=== PATIENT | male | born 1970 | race Caucasian/White ===

== ENCOUNTER → 2016-12-16 | Outpatient (CLI) | payer OTHER ==
--- NOTE | 2016-12-16 20:51 | XR ---
EXAMINATION TYPE: XR chest 2V DATE OF EXAM: 12/16/2016 COMPARISON: NONE HISTORY: Chest pain TECHNIQUE: Frontal and lateral views of the chest are obtained. FINDINGS: Heart and mediastinum are normal. Lungs are clear. Diaphragm is normal. Bony thorax is int act. IMPRESSION: Normal chest
== END | disposition home or self-care (01) ==
LOC: RADXRMAIN 16:53
PROVIDERS: ATTEND Family Medicine
DX: M94.0 Chondrocostal junction syndrome [Tietze] (principal)
CPT/HCPCS: 71020

== ENCOUNTER → 2017-02-04 | Outpatient (CLI) | payer OTHER ==
--- NOTE | 2017-02-04 16:47 | NM ---
EXAMINATION TYPE: NM bone scan whole body DATE OF EXAM: 02/04/2017 COMPARISON: Thoracic spine from outside institution 01/31/2017 HISTORY: Idiopathic scoliosis Delayed whole-body scanning was performed following the injection of 26.5 mCi Tc 99m MDP. Images acq uired 3.5 hours post injection. FINDINGS: Whole-body scanning as well as spot images obtained. Spinal curvature is noted as on plain film. Soft tissue uptake is normal. Mild uptake within the knee s, shoulders, sternoclavicular joints, ankles and feet likely due to mild degenerative change. Uptake in the maxilla and mandible likely due to periodontal disease. IMPRESSION: Findings compatible with patient's history.
== END ==
LOC: RADNMMAIN 11:35
PROVIDERS: ATTEND Physical Medicine & Rehabilitation
DX: M47.22 Other spondylosis with radiculopathy, cervical region (principal); M47.24 Other spondylosis with radiculopathy, thoracic region; M41.24 Other idiopathic scoliosis, thoracic region
CPT/HCPCS: 78306; A9503

== ENCOUNTER 2017-09-23 13:16 | Emergency (ER) | payer OTHER ==
[2017-09-23 13:42] VITALS: BP 117/87; PULSE 68; RESP 22; TEMP 98.1
[2017-09-23] MEDS ORDERED: LIDOCAINE VISCOUS 2% 15 ML CUP MUCOUS MEM ONE (14:09)
--- NOTE | 2017-09-23 14:14 | ED ---
General Adult HPI - General Chief complaint: Recheck/Abnormal Lab/Rx Stated complaint: Hemrroids Time Seen by Provider: 09/23/17 13:42 Source: patient, RN notes reviewed Mode of arrival: ambulatory Limitations: no limitations - History of Present Illness Initial comments: Patient 47-year-old male presents into the emergency room today with chief complaint of hemorrhoids. Patient states that he has been to his hemorrhoids off and on since the age of 28. He does admit that he went to a surgeon earlier in the week and had a hemorrhoid incised. He does admit that he was feeling well for a few days but the last 2 days but have increased pain. He does admit that there is still been draining some bloody is been using a pad. He doesn't pain is worse with movements. Patient states he began taking a stool softener [id number]. He has not been using anything topical. He states been using pain medication. He denies any other complaints. Patient was given oxycodone from the surgeon's office. Patient also admits that he's been using anti-inflammatories. - Related Data Previous Rx's Medication Instructions Recorded Docusate [Colace] 100 mg PO DAILY #14 capsule 09/23/17 Hydrocortisone [Anusol-Hc] 1 applic RECTAL TID #1 gm 09/23/17 Allergies Allergy/AdvReac Type Severity Reaction Status Date / Time No Known Allergies Allergy Verified 09/23/17 13:42 Review of Systems ROS Statement: Those systems with pertinent positive or pertinent negative responses have been documented in the HPI. ROS Other: All systems not noted in ROS Statement are negative. Past Medical History Additional Past Medical History / Comment(s): chronic back pain History of Any Multi-Drug Resistant Organisms: None Reported Past Surgical History: No Surgical Hx Reported Past Psychological History: No Psychological Hx Reported Smoking Status: Never smoker Past Alcohol Use History: None Reported Past Drug Use History: Marijuana General Exam - General Exam Comments Initial Comments: General: The patient is awake and alert, in no distress, and does not appear acutely ill. Eye: Pupils are equal, round and reactive to light, extra-ocular movements are intact. No nystagmus. There is normal conjunctiva bilaterally. No signs of icterus. Ears, nose, mouth and throat: There are moist mucous membranes and no oral lesions. Neck: The neck is supple Musculoskeletal: Normal ROM, no tenderness. Strength 5/5. Sensation intact. Neurological: A&O x 3. CN II-XII intact, There are no obvious motor or sensory deficits. Coordination appears grossly intact. Speech is normal. Skin: Skin is warm and dry and no rashes or lesions are noted. Psychiatric: Cooperative, appropriate mood & affect, normal judgment. : Patient does have 2 large nonthrombosed hemorrhoids. One on the left and one on the right. On the right side to his incision site with small amount of blood at the site no active bleeding. Limitations: no limitations Course Vital Signs 09/23/17 13:38 Temperature 98.1 F Pulse Rate 68 Respiratory 22 Rate Blood Pressure 117/87 O2 Sat by Pulse 100 Oximetry Medical Decision Making - Medical Decision Making Patient will be given lidocaine. The emergency room. Given a prescription for topical cream. Advised continue a stool softener. Advised pain medication. Advised follow-up with surgeon next 2 days. Advised return for any other concerns. Disposition Clinical Impression: Hemorrhoid Disposition: HOME SELF-CARE Condition: Good Instructions: Hemorrhoids (ED) Additional Instructions: Please use medication as discussed. Please follow-up with surgeon in the next 2 days. Please return to emergency room if the symptoms increase or worsen or for any other concerns. Prescriptions: Docusate [Colace] 100 mg PO DAILY #14 capsule Hydrocortisone [Anusol-Hc] 1 applic RECTAL TID #1 gm Is patient prescribed a controlled substance at d/c from ED?: No Referrals: Sofy Calderón DO [Primary Care Provider] - 1-2 days Time of Disposition: 14:12
== END 2017-09-23 14:24 | disposition home or self-care (01) ==
LOC: EC 13:16
DX: K64.8 Other hemorrhoids (principal)
CPT/HCPCS: 99282

== ENCOUNTER 2021-01-24 21:43 | Emergency (ER) | payer OTHER ==
[2021-01-24 21:54] VITALS: BP 129/76; PULSE 65; RESP 20; TEMP 98
[2021-01-24] MEDS ORDERED: PROPARACAINE 0.5% OPHTH DROPS 15 ML BTL LEFT EYE STA (21:58)
[2021-01-24] MEDS ORDERED: FLUORESCEIN STRIPS 1 MG STRIP LEFT EYE ONE (21:58)
[2021-01-24] MEDS ORDERED: CIPROFLOXACIN 0.3% OPHTH SOLN 5 ML BTL LEFT EYE STA (22:39)
--- NOTE | 2021-01-24 22:40 | ED ---
General Adult HPI - General Chief complaint: Eye Problems Stated complaint: L eye irritation Time Seen by Provider: 01/24/21 22:00 Source: patient, RN notes reviewed Mode of arrival: ambulatory Limitations: no limitations - History of Present Illness Initial comments: 50-year-old male patient, alert and oriented 4, presents to emergency room with complaints of left eye pain. 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 States that he thought it was just a scratch and would heal on its own as he has had corneal abrasions in the past. He states that today he woke up and it was crusted shut and is having increased pain with light. He states that even with his left eye closed the light in the right eye causes left eye pain. Denies any fevers. No nausea vomiting. -: days(s) (5) Severity scale (1-10): 10 Quality: aching, constant Improves with: none Worsens with: other (light) Associated Symptoms: denies other symptoms - Related Data Home Medications Medication Instructions Recorded Confirmed Cyclobenzaprine [Flexeril] 10 mg PO DAILY PRN 09/23/17 09/23/17 Docusate [Colace] 100 mg PO ONCE PRN 09/23/17 09/23/17 Ibuprofen [Motrin] 800 mg PO TID PRN 09/23/17 09/23/17 oxyCODONE-APAP 7.5-325MG [Percocet 1 tab PO Q6HR PRN 09/23/17 09/23/17 7.5-325 mg] traMADol HCl [Ultram] 50 mg PO Q12H PRN 09/23/17 09/23/17 Previous Rx's Medication Instructions Recorded Docusate [Colace] 100 mg PO DAILY #14 capsule 09/23/17 Hydrocortisone [Anusol-Hc] 1 applic RECTAL TID #1 gm 09/23/17 Ciprofloxacin Ophth Soln [Ciloxan 2 drops LEFT EYE Q4HR 5 Days #2.5 01/24/21 0.3% Ophth Soln] ml Cyclopentolate 1% Ophth Soln 1 drops LEFT EYE DAILY 3 Days #1 ml 01/24/21 [Cyclogyl 1% Ophth Soln] Allergies Allergy/AdvReac Type Severity Reaction Status Date / Time No Known Allergies Allergy Verified 01/24/21 21:55 Review of Systems ROS Statement: Those systems with pertinent positive or pertinent negative responses have been documented in the HPI. ROS Other: All systems not noted in ROS Statement are negative. Past Medical History Additional Past Medical History / Comment(s): chronic back pain History of Any Multi-Drug Resistant Organisms: None Reported Past Surgical History: Orthopedic Surgery Additional Past Surgical History / Comment(s): rt knee Past Psychological History: No Psychological Hx Reported Smoking Status: Former smoker Past Alcohol Use History: None Reported Past Drug Use History: Marijuana General Exam Limitations: no limitations General appearance: alert, in no apparent distress Head exam: Present: atraumatic, normocephalic, normal inspection Eye exam: Present: PERRL, EOMI, conjunctival injection. Absent: nystagmus Pupils: Present: normal accommodation, other (Foreign body at 9:00) ENT exam: Present: normal exam, normal oropharynx, mucous membranes moist Neck exam: Present: normal inspection, full ROM. Absent: tenderness, meningismus, lymphadenopathy Respiratory exam: Present: normal lung sounds bilaterally. Absent: respiratory distress, wheezes, rales, rhonchi, stridor Cardiovascular Exam: Present: regular rate, normal rhythm, normal heart sounds. Absent: systolic murmur, diastolic murmur, rubs, gallop, clicks GI/Abdominal exam: Present: soft, normal bowel sounds. Absent: distended, tenderness, guarding, rebound, rigid Back exam: Present: normal inspection Neurological exam: Present: alert, oriented X3, CN II-XII intact Psychiatric exam: Present: normal affect, normal mood Skin exam: Present: warm, dry, intact, normal color. Absent: rash, cyanosis, diaphoretic Course Vital Signs 01/24/21 21:52 Temperature 98.0 F Pulse Rate 65 Respiratory 20 Rate Blood Pressure 129/76 O2 Sat by Pulse 99 Oximetry Procedures - Forgein Body Removal Eye Site: Left Anesthetic Used: Proparacaine Eye Exam Technique: Clarke Lamp, Fluorescein Foreign Body Suspected: Metal Forgein Body Removal Technique: Cotton Swab, [place] Patient Tolerated: well Additional Comments: rust ring remains at 9:00, unable to remove will be referred to ophthalmology Medical Decision Making - Medical Decision Making Patient presents with a metal foreign body to his left eye since Tuesday. Foreign body was removed and multiple attempts to remove the rust ring were made and unsuccessful. Case discussed with Dr Hauser and he'll be put on Cyclopentolate and opthalmic antibiotics. He will be referred to ophthalmology. Directed to return to the emergency room with any new or worsening symptoms including increased pain, fevers, pain with eye movement or visual changes. Disposition Clinical Impression: Foreign body in eye, Iritis Disposition: HOME SELF-CARE Condition: Good Instructions (If sedation given, give patient instructions): Eye Foreign Body (ED) Additional Instructions: Use medication as prescribed and follow-up with ophthalmology on Tuesday. Return to the emergency room with any new or worsening symptoms including pain, fever or visual changes. Prescriptions: Ciprofloxacin Ophth Soln [Ciloxan 0.3% Ophth Soln] 2 drops LEFT EYE Q4HR 5 Days #2.5 ml Cyclopentolate 1% Ophth Soln [Cyclogyl 1% Ophth Soln] 1 drops LEFT EYE DAILY 3 Days #1 ml Is patient prescribed a controlled substance at d/c from ED?: No Referrals: None,Stated [Primary Care Provider] - 1-2 days Obdulio Barcenas MD [STAFF PHYSICIAN] - 1-2 days Time of Disposition: 22:37
== END 2021-01-24 22:47 | disposition home or self-care (01) ==
LOC: EC 21:43
DX: T15.92XA Foreign body on external eye, part unspecified, left eye, initial encounter (principal); H20.9 Unspecified iridocyclitis; Z87.891 Personal history of nicotine dependence; W45.8XXA Other foreign body or object entering through skin, initial encounter; Y92.89 Other specified places as the place of occurrence of the external cause
CPT/HCPCS: 99283